=== PATIENT | female | born 1960 | race Hispanic/Latino ===

== ENCOUNTER 2017-06-10 12:43 | Observation (INO) | payer BC ==
[2017-06-10 13:01] VITALS: BMI 23.3
--- NOTE | 2017-06-10 13:30 | ED PDOC ---
Arrival/HPI - General Time Seen by Provider: 06/10/17 13:08 Historian: Patient - History of Present Illness Narrative History of Present Illness (Text): 06/10/17 19:38 57yo female with history antiphospholipid syndrome, COPD with cardiac stent who present with complaint of chest tightness and [place] x 2days. She notes that symptoms started after she came back from a trip to [facility] and [place]. Notes edema of her b/l foot. States she had similar symptoms when she was stent few years ago. +Mild cough. Denies orthopnea, fever, chills, diaphoresis, nausea, vomiting, ripping/tearing upper back pain, dizziness, any other complaint. Notes that she took her usually 325mg of [employer] [employer]. Past Medical History - Provider Review Nursing Documentation Reviewed: Yes - Hematological/Oncological Hx Blood Transfusions: No Hx Blood Transfusion Reaction: No - Anesthesia Hx Anesthesia Reactions: No Hx Malignant Hyperthermia: No Family/Social History - Physician Review Nursing Documentation Reviewed: Yes Family/Social History: Unknown Family HX Allergies/Home Meds Allergies/Adverse Reactions: Allergies raw eggs Allergy (Uncoded 06/10/17 15:40) ITCHING Home Medications: Home Meds Medication Instructions Recorded Confirmed Atorvastatin Calcium [Lipitor] 40 mg PO DAILY 02/12/13 06/10/17 Clopidogrel [Plavix] 75 mg PO DAILY 02/12/13 06/10/17 Fluticasone/Salmeterol [Advair 1 inh INH DAILY 02/12/13 06/10/17 Diskus 100/50] Propranolol [Inderal LA] 120 mg PO DAILY 02/12/13 06/10/17 Alprazolam [Xanax] 0.5 mg PO HS PRN 06/10/17 06/10/17 Aspirin [Ecotrin] 325 mg PO DAILY 06/10/17 06/10/17 Review of Systems - Physician Review All systems were reviewed & negative as marked: Yes - Review of Systems Constitutional: Normal Eyes: Normal ENT: Normal Respiratory: SOB. absent: Cough, Sputum, Wheezing Cardiovascular: Chest Pain, Edema. absent: Palpitations, Calf Pain Gastrointestinal: Normal Genitourinary Female: Normal Musculoskeletal: Normal Skin: Normal Neurological: Normal Endocrine: Normal Hemo/Lymphatic: Normal Psychiatric: Normal Physical Exam Vital Signs Reviewed: Yes Vital Signs Temp Pulse Resp BP Pulse Ox 06/10/17 13:02 19 06/10/17 12:44 98.6 F 85 19 121/95 H 96 Temperature: Afebrile Blood Pressure: Normal Pulse: Regular Respiratory Rate: Normal Appearance: Positive for: Well-Appearing, Non-Toxic, Comfortable Pain Distress: None Mental Status: Positive for: Alert and Oriented X 3 - Systems Exam Head: Present: Atraumatic, Normocephalic Pupils: Present: PERRL Extroacular Muscles: Present: EOMI Conjunctiva: Present: Normal Mouth: Present: Moist Mucous Membranes Neck: Present: Normal Range of Motion Respiratory/Chest: Present: Clear to Auscultation, Good Air Exchange, Decreased Breath Sounds. No: Respiratory Distress, Accessory Muscle Use, Wheezes, Rales, Retracting, Rhonchi Cardiovascular: Present: Regular Rate and Rhythm, Normal S1, S2. No: Murmurs Abdomen: Present: Normal Bowel Sounds. No: Tenderness, Distention, Peritoneal Signs Back: Present: Normal Inspection Upper Extremity: Present: Normal Inspection. No: Cyanosis, Edema Lower Extremity: Present: Normal Inspection, Edema (2+ pitting edema of b/l foot ), NORMAL PULSES, Normal ROM. No: CALF TENDERNESS Neurological: Present: GCS=15, CN II-XII Intact, Speech Normal Skin: Present: Warm, Dry, Normal Color. No: Rashes Psychiatric: Present: Alert, Oriented x 3, Normal Insight, Normal Concentration Medical Decision Making ED Course and Treatment: 06/10/17 19:38 Pt in ED for stated history. Her First CE was negative and D dimer was negative. EKG NSR @ 81bpm Pt have significant cardiac history and was admitted for further evaluation Case was SHAJI Yoo and he saw pt in the ED. Case was SHAJI woods and pt was admitted - Lab Interpretations Lab Results: 06/10/17 13:20 06/10/17 13:20 Lab Results 06/10/17 13:20: Sodium 143, Chloride 107, Potassium 3.6, Carbon Dioxide 28, Anion Gap 12, BUN 22 H, Creatinine 0.8, Est GFR ( Amer) > 60, Est GFR ( Non-Af Amer) > 60, Random Glucose 126 H, Calcium 9.7, Total Bilirubin 0.3, AST 26, ALT 33, Alkaline Phosphatase 76, Lactate Dehydrogenase 488, Total Creatine Kinase 57, Troponin I < 0.01, NT-Pro-B Natriuret Pep 151, Total Protein 7.1, Albumin 3.8, Globulin 3.3, Albumin/Globulin Ratio 1.2 06/10/17 13:20: pO2 56 H, VBG pH 7.43, VBG pCO2 42.0, VBG HCO3 27.9, VBG Total CO2 29.2 H, VBG O2 Sat (Calc) 95.2 H, VBG Base Excess 3.2 H, VBG Potassium 3.8, Sodium 140.0, Chloride 109.0 H, Glucose 126 H, Lactate 1.4, FiO2 21.0, Venous Blood Potassium 3.8 06/10/17 13:20: Urine Color Yellow, Urine Appearance Clear, Urine pH 6.0, Ur Specific [place] 1.025, Urine Protein Negative, Urine Glucose (UA) Negative, Urine Ketones Negative, Urine Blood Negative, Urine Nitrate Negative, Urine Bilirubin Negative, Urine Urobilinogen 0.2, Ur Leukocyte Esterase Negative 06/10/17 13:20: PT 11.5, INR 1.00, APTT 28.4, D-Dimer, Quantitative 236 06/10/17 13:20: WBC 7.9, RBC 4.91, Hgb 13.3, Hct 42.2, MCV 85.9, MCH 27.1, MCHC 31.5, RDW 14.6 H, Plt Count 194, MPV 10.8, Gran % 53.4, Lymph % (Auto) 33.8, [place] % (Auto) 7.2 H, Eos % (Auto) 5.3 H, Baso % (Auto) 0.3, Gran # 4.20, Lymph # (Auto) 2.7, [place] # (Auto) 0.6, Eos # (Auto) 0.4, Baso # (Auto) 0.02 - RAD Interpretation Radiology Orders: 06/10/17 13:09 CHEST PORTABLE [RAD] Stat 06/10/17 13:54 DUPLEX LOWER EXTRM VEIN BILAT [US] Stat - Medication Orders Current Medication Orders: Alprazolam (Xanax) 0.5 mg PO HS PRN; Protocol PRN Reason: Anxiety Aspirin (Ecotrin) 325 mg PO DAILY [place] Atorvastatin Calcium (Lipitor) 40 mg PO DAILY [place] Last Admin: 06/10/17 18:18 Dose: 40 mg Clopidogrel Bisulfate (Plavix) 75 mg PO DAILY [facility] Levalbuterol HCl (Xopenex) 0.63 mg IH [id number] PRN PRN Reason: Shortness of Breath Propranolol HCl (Inderal La) 12 mg PO DAILY [place]SE[place] Discontinued Medications Albuterol/Ipratropium (Duoneb 3 Mg/0.5 Mg (3 Ml) Ud) 3 ml IH STAT STA Stop: 06/10/17 14:37 Last Admin: 06/10/17 14:52 Dose: 3 ml Albuterol/Ipratropium (Duoneb 3 Mg/0.5 Mg (3 Ml) Ud) 3 ml IH STAT STA Stop: 06/10/17 15:03 Last Admin: 06/10/17 15:30 Dose: 3 ml Albuterol/Ipratropium (Duoneb 3 Mg/0.5 Mg (3 Ml) Ud) 3 ml IH STAT STA Stop: 06/10/17 15:08 Last Admin: 06/10/17 15:15 Dose: 3 ml Atorvastatin Calcium (Lipitor) 40 mg PO DAILY [facility] Enoxaparin Sodium (Lovenox) 60 mg SC STAT STA PRN Reason: Protocol Stop: 06/10/17 16:33 Last Admin: 06/10/17 17:29 Dose: 60 mg Subcutaneous Administrations Document 06/10/17 17:29 GM (Rec: 06/10/17 17:30 GM [id number]) Injection Site MAR Injection Site Left Abdomen Charges for Administration # of Subcutaneous Administrations 1 Furosemide (Lasix) 40 mg IV ONCE ONE Stop: 06/10/17 16:33 Last Admin: 06/10/17 17:28 Dose: 40 mg eMAR Start Stop Document 06/10/17 17:28 GM (Rec: 06/10/17 17:29 GM [id number]) Intravenous Solution Start Date 06/10/17 Start Time 17:29 MAR Blood Pressure Document 06/10/17 17:28 GM (Rec: 06/10/17 17:29 GM [id number]) Blood Pressure Blood Pressure (100/60-150/90) 118/71 Methylprednisolone (Solu-Medrol) 125 mg IVP STAT STA Stop: 06/10/17 15:02 Last Admin: 06/10/17 16:14 Dose: 125 mg IVP Administration Document 06/10/17 16:14 SF (Rec: 06/10/17 16:14 [id number]) Charges for Administration # of IVP Administrations 1 Potassium Chloride (K-Dur 20 Meq Er Tab) 40 meq PO STAT STA Stop: 06/10/17 16:33 Last Admin: 06/10/17 17:28 Dose: 40 meq Disposition/Present on Arrival - Present on Arrival Any Indicators Present on Arrival: No History of DVT/PE: No History of Uncontrolled Diabetes: No Urinary Catheter: No History of Decub. Ulcer: No - Disposition Have Diagnosis and Disposition been Completed?: Yes Diagnosis: Chest pain, COPD (chronic obstructive pulmonary disease), Edema Disposition: HOSPITALIZED Disposition Time: 15:05 Patient Problems: Current Active Problems Problem Status Onset COPD (chronic obstructive pulmonary disease) Acute Chest pain Acute Condition: FAIR
[2017-06-10 13:42] LABS: VENOUS BLOOD GAS BASE EXCESS 3.2 mmol/L (0.0-2.0); VENOUS BLOOD GAS PO2 56 mm/Hg (30-55); VENOUS BLOOD PH 7.43 (7.32-7.43)
[2017-06-10 13:43] LABS: BASO # 0.02 K/mm3 (0.0-2.0); BASO % 0.3 % (0.0-3.0); EOS # 0.4 (0.0-0.7); EOS % 5.3 % (1.5-5.0); GRAN # 4.2 (1.4-6.5); GRAN % 53.4 % (50.0-68.0); HEMOGLOBIN 13.3 g/dL (12.0-16.0); LYMPH # 2.7 (1.2-3.4); LYMPH % 33.8 % (22.0-35.0); MEAN CELL VOLUME 85.9 fl (80.0-105.0); MEAN CORPUSCULAR HEMOGLOBIN 27.1 pg (25.0-35.0); MEAN CORPUSCULAR HGB CONC 31.5 g/dl (31.0-37.0); MEAN PLATELET VOLUME 10.8 fl (7.0-11.0); MONO # 0.6 (0.1-0.6); MONO % 7.2 % (1.0-6.0); RBC 4.91 10^6/uL (3.5-6.1); RED CELL DISTRIBUTION WIDTH 14.6 % (11.5-14.5); WHITE BLOOD COUNT 7.9 10^3/ul (4.5-11.0)
--- NOTE | 2017-06-10 13:46 | RAD ---
HISTORY: Shortness of breath COMPARISON: 02/03/2011. FINDINGS: LUNGS: The lungs are hyperinflated and there is peribronchial thickening with chronic changes in both lungs. There is no focal consolidation PLEURA: No significant pleural effusion identified, no pneumothorax apparent. CARDIOVASCULAR: Normal. OSSEOUS STRUCTURES: No significant abnormalities. VISUALIZED UPPER ABDOMEN: Normal. OTHER FINDINGS: None. IMPRESSION: No active pulmonary disease. COPD.
[2017-06-10 13:48] LABS: PARTIAL THROMBOPLASTIN TIME 28.4 Seconds (25.1-36.5); PROTHROMBIN TIME 11.5 SECONDS (9.4-12.5)
[2017-06-10 13:49] LABS: ALB/GLOB RATIO 1.2 (1.1-1.8); ALBUMIN 3.8 g/dL (3.0-4.8); ALT/SGPT 33 U/L (7-56); AST/SGOT 26 U/L (14-36); BLOOD UREA NITROGEN 22 mg/dL (7-21); CALCIUM 9.7 mg/dL (8.4-10.5); GFR AFRICAN-AMERICAN > 60; GFR NON-AFRICAN AMERICAN > 60
[2017-06-10 13:53] LABS: URINE BILIRUBIN NEGATIVE (NEGATIVE); URINE BLOOD NEGATIVE (NEGATIVE); URINE GLUCOSE (UA) NEGATIVE (NEGATIVE); URINE LEUKOCYTE ESTERASE NEGATIVE Leu/uL (NEGATIVE); URINE NITRATE NEGATIVE (NEGATIVE); URINE PROTEIN NEGATIVE mg/dL (<30 mg/dL); URINE UROBILINOGEN 0.2 E.U./dL (<1 E.U./dL)
[2017-06-10 14:01] LABS: B-TYPE NATRIURETIC PEPTIDE 151 pg/mL (0-450); TROPONIN I < 0.01 ng/mL
[2017-06-10 14:05] LABS: URINE APPEARANCE CLEAR (CLEAR); URINE COLOR YELLOW (YELLOW)
[2017-06-10] MEDS ORDERED: Albuterol-Ipratrop 3 mg / 0.5 (3 ml) UD IH STA ×3 (14:36→15:07)
--- NOTE | 2017-06-10 16:04 | US ---
HISTORY: Leg pain and swelling. Evaluate for DVT PHYSICIAN(S): Dilshad Vargas MD. TECHNIQUE: Duplex sonography and color-flow Doppler with graded compression were used to evaluate the deep venous systems of both lower extremities. FINDINGS: The visualized deep venous systems of both lower extremities are sonographically normal and compressible. Normal wave forms and augmentation are seen. There is no sonographic evidence for deep venous thrombosis in the visualized segments of both lower extremities. IMPRESSION: No sonographic evidence for deep venous thrombosis in the visualized segments of both lower extremities.
[2017-06-10] MEDS ORDERED: Enoxaparin 60 mg Syringe SC STA (16:32)
[2017-06-10] MEDS ORDERED: Potassium Chloride 20 mEq ER Tab PO STA (16:32)
[2017-06-10] MEDS ORDERED: Levalbuterol 0.63 MG/3 ML Inhal Soln UD IH PRN (16:34)
[2017-06-10 17:03] LABS: HDL CHOLESTEROL 56 mg/dL (29-60)
[2017-06-10 17:14] LABS: LDL CHOLESTEROL 84 mg/dL (0-129)
[2017-06-10 17:18] LABS: TROPONIN I < 0.01 ng/mL
--- NOTE | 2017-06-11 04:21 | CON ---
DATE: 06/10/2017 REASON FOR CONSULTATION: Chest pain, tightness, swelling of the leg, mild shortness of breath, history of coronary artery disease. BRIEF CLINICAL HISTORY: This is a 57-year-old female with history of coronary artery disease in 2007, status post PTCA, history of PAD, status post stent in the leg somewhere in 2008 or 2009, off Plavix. Last stress test in 2014. [place] [facility], the patient later on developed some swelling and while she was coming, she was having some chest pain, one episode, last Tuesday. There was mild shortness of breath, increase in more leg fullness and decided to come to the emergency room. Initially called Dr. Sims's office and was suggested to come to the ER. The patient currently denies any chest pain, denies any shortness of breath, denies any palpitation, getting Proventil nebulizer treatment now. is at the bedside. PAST HISTORY: Significant for coronary artery disease, hypertension and COPD, history of tobacco abuse in the past, history of coronary artery disease in 2007, history of peripheral artery disease, status post stent. Last stress test, cardiac workup in 02/26/2015 that was normal myocardial perfusion study, ejection fraction 69%, it was a Lexiscan. CURRENT MEDICATIONS: The patient is taking at home propranolol 120 mg daily, Advair 1 puff inhaler, clopidogrel 75 mg daily, atorvastatin 40 mg daily, aspirin 325 mg daily and Xanax 0.5 mg p.o. at bedtime p.r.n. ALLERGIES: ALLERGY TO RAW EGGS. SOCIAL HISTORY: Denies any history of alcohol abuse. Socially drinks. History of active tobacco abuse. REVIEW OF SYSTEMS: As per HPI. PHYSICAL EXAMINATION: VITAL SIGNS: Temperature afebrile, heart rate 85, blood pressure 121/95. HEENT: PERRLA, intact. NECK: Supple. No carotid bruits or thyromegaly. CHEST: Clear to auscultation. HEART: S1, S2 regular. ABDOMEN: Soft. EXTREMITIES: Clubbing and cyanosis negative. Trace pedal edema. Claims that she has more leg edema 2 days ago, but now improved. Tanning of the leg and feet noted because of the beach. EKG shows normal sinus, left abnormal. No acute ST-T changes noted. LABORATORY DATA: Blood workup as follows: WBC is 7.9, hemoglobin 13.3, hematocrit 42.0, platelet count 194. Chemistry shows sodium 140, potassium 3.6, chloride 107, carbon dioxide 29, anion gap of 12. BUN 0.8. IMPRESSION: Chest pain, so far no evidence of myocardial infarction. No acute ST-T changes noted. History of coronary artery disease, borderline diabetes, hypertension, hyperlipidemia, peripheral arterial disease, active tobacco abuse. Last stress test in 02/2015. RECOMMENDATIONS: We will add second set of troponin now and repeat one in the morning. If troponin remains negative, we will discharge her home and stress test as outpatient. Discussed with the patient. Discussed with the patient's . We will get lipid profile, hemoglobin A1c. Thank you Dr. Jain, for providing us the opportunity in taking care of the patient, Alea Brown. Cristiane Yoo MD
[2017-06-11 05:30] VITALS: BP 134/70; RESP 20; TEMP 98.1; O2SAT 94
[2017-06-11 09:22] LABS: BASO # 0.01 K/mm3 (0.0-2.0); BASO % 0.1 % (0.0-3.0); GRAN # 14.46 (1.4-6.5); GRAN % 87.6 % (50.0-68.0); LYMPH # 1.6 (1.2-3.4); LYMPH % 9.6 % (22.0-35.0); MEAN CELL VOLUME 85.9 fl (80.0-105.0); MEAN CORPUSCULAR HEMOGLOBIN 27.8 pg (25.0-35.0); MEAN CORPUSCULAR HGB CONC 32.3 g/dl (31.0-37.0); MEAN PLATELET VOLUME 10.8 fl (7.0-11.0); MONO # 0.4 (0.1-0.6); MONO % 2.7 % (1.0-6.0); RBC 5.04 10^6/uL (3.5-6.1); RED CELL DISTRIBUTION WIDTH 14.6 % (11.5-14.5); WHITE BLOOD COUNT 16.5 10^3/ul (4.5-11.0)
[2017-06-11 09:33] LABS: ALB/GLOB RATIO 1.2 (1.1-1.8); ALBUMIN 4.2 g/dL (3.0-4.8); ALT/SGPT 34 U/L (7-56); AST/SGOT 29 U/L (14-36); BLOOD UREA NITROGEN 27 mg/dL (7-21); GFR AFRICAN-AMERICAN > 60; GFR NON-AFRICAN AMERICAN > 60; MAGNESIUM 2.1 mg/dL (1.7-2.2)
[2017-06-11 09:43] LABS: TROPONIN I < 0.01 ng/mL
[2017-06-11] MEDS ORDERED: Propranolol 60 mg ER Cap PO SCH ×2 (10:00)
[2017-06-11] MEDS ORDERED: PROPRANOLOL 120 MG PO SCH (10:00)
[2017-06-11] MEDS ORDERED: Aspirin 325 mg EC Tablets PO SCH (10:00)
[2017-06-11 10:05] VITALS: PULSE 75
--- NOTE | 2017-06-11 21:59 | PN ---
DATE: 06/11/2017 LOCATION: Patient is in room 375, bed 1. REASON FOR CONSULTATION: Chest pain, swelling of legs, shortness of breath, history of coronary artery disease. Patient has stent put in in the past, history of PAD. SUBJECTIVE: Patient is sitting in the bed without any chest pain, shortness of breath, or palpitation. Her leg swelling is also completely cleared. PHYSICAL EXAMINATION: VITAL SIGNS: Blood pressure 134/70, respiratory rate is 20, pulse is 75, temperature is 98.1. HEENT: Head is normocephalic. Eyes, pupils normal, conjunctivae normal. Nose and throat normal. NECK: JVP low. Carotids equal. THORAX: AP diameter normal. LUNGS: Clear. CARDIOVASCULAR: S1 and S2. ABDOMEN: Soft. No tenderness. No organomegaly. Bowel sounds normal. EXTREMITIES: No clubbing. No cyanosis. LABORATORY DATA: WBC 16.5, hemoglobin 14.0, hematocrit 43.3, platelet 199. Sodium 144, potassium 3.9, BUN 27, creatinine 0.7, random glucose 198, phosphorus 3.9, magnesium 2.1. AST, ALT normal. Troponin x3 negative. Total protein 7.8, albumin 4.2. TSH 0.46, NT-pro brain natriuretic peptide 151. DIAGNOSES: Chest pain, history of coronary artery disease, history of angioplasty and stent insertion, borderline diabetes, hypertension, hyperlipidemia, peripheral vascular disease, acute tobacco abuse, history of antiphospholipid antibody syndrome. Last stress test in 02/2015. Edema of the legs, probably due to venous stasis, which has cleared. PLAN: Patient's troponins are negative. Patient does not have any chest pain. Patient wants to go home today and patient states that she will do a stress test as outpatient. So, patient was told to continue aspirin and Plavix with other medications and she will also see Dr. Burdick for antiphospholipid antibody syndrome followup. Patient will do stress test as an outpatient. We will follow with you. Cristiane Simons MD
--- NOTE | 2017-06-12 02:09 | HP ---
HISTORY OF PRESENT ILLNESS: The patient is 57 years old, patient of Dr. Sims, who has past medical history of coronary artery disease and the patient states she usually travels and she has been traveling back and forth, but yesterday she developed left foot bruise. She had chest pain with mild shortness of breath, so she came to emergency room for further evaluation because of her previous history of coronary artery disease. The patient states she felt as her clavicles are getting tight on her. She also had left leg swelling. Denies any fever or chills. No history of nausea or vomiting. No diarrhea. PAST MEDICAL HISTORY: Significant for; 1. Coronary artery disease, status post angioplasty in 2007. She had right coronary artery stent placed, has been on aspirin and Plavix for 2-3 years. The patient states she had stress test done in 2014 and it was found to be unremarkable. 2. History of hypertension. 3. Coronary artery disease. 4. History of COPD. 5. History of smoking. 6. Peripheral vascular disease. ALLERGIES: SHE IS ALLERGIC TO RAW EGGS. MEDICATIONS AT HOME: She is on propranolol 120 mg daily, Advair 1 puff twice a day. She used to take Plavix, but is off for sometime, atorvastatin 40 mg daily, aspirin 325 daily and Xanax as needed. SOCIAL HISTORY: She is , lives with her . Denies alcohol use, only socially drinks and has history of active smoking. REVIEW OF SYSTEMS: Significant for left leg swelling. FAMILY HISTORY: Positive for blood clot disorder. Two of her half sisters have antiphospholipid antibody deficiency. PHYSICAL EXAMINATION: GENERAL: On examination today, she is awake, alert, oriented. She states her chest pain is gone, leg swelling is better. She wants to go home. VITAL SIGNS: She is afebrile, pulse 95, respirations 20, blood pressure 134/70. LUNGS: Bilateral good airflow. No rhonchi or crackle. HEART: S1, S2 audible. ABDOMEN: Soft, nontender. No rebound. No guarding. NEUROLOGICALLY: The patient is awake, alert, oriented, communicative. LABORATORY EXAMINATION: WBC is 7.9 yesterday and today is 16.5, hemoglobin 14, hematocrit 43, platelet of 199. PT 11.5, INR 1.0. Chemistry: Sodium 144, potassium 3.9, chloride 106, CO2 of 27, BUN 27, creatinine 0.7, blood sugar of 198. LFTs are within normal limit. Total cholesterol 161, TSH is 0.46. Urinalysis is unremarkable. Echocardiogram is pending. Leg Doppler is negative for DVT. X-ray chest is also unremarkable. ASSESSMENT: 1. Noncardiac chest pain. 2. History of coronary artery disease, status post right coronary artery angioplasty. 3. History of coagulopathy in the family, even the patient stated that she has antiphospholipid antibody disorder. PLAN: The patient is clinically stable. Her followup white count is high. She desperately wants to go home and she states she will follow up with her PMD to repeat her CBC. She is also advised to follow up with oncologist, Dr. Burdick to have her coagulation workup done again to rule out any clotting disorder since the workup was done 6-7 years ago. So the patient is being discharged home on her routine medication that include propranolol, Plavix 75 daily until she gets hematology evaluation done. She will continue Advair, atorvastatin and Xanax as prior to admission. Rainer Moreno MD
--- NOTE | 2017-06-13 15:59 | CARD ---
APPROVED REPORT EXAM: Two-dimensional and M-mode echocardiogram with Doppler and color Doppler. INDICATION 2D DIMENSIONS IVSd1.0 (0.7-1.1cm)LVDd4.0 (3.9-5.9cm) LVOT Diameter1.9 (1.8-2.4cm)PWd0.9 (0.7-1.1cm) LVDs2.5 (2.5-4.0cm)FS (%) 37.4 % LVEF (%)68.1 (>50%) M-Mode DIMENSIONS Left Atrium (MM)2.30 (2.5-4.0cm)Aortic Root2.60 (2.2-3.7cm) Aortic Cusp Exc.1.40 (1.5-2.0cm) Aortic Valve AoV Peak Qqjftptc790.0cm/Alexander Peak GR.6mmHg Mitral Valve MV E Fpcvypug81.8cm/sMV A Hwbesxep47.9cm/sE/A ratio1.0 TDI Lateral E' Peak V9.07cm/sMedial E' Peak V6.24cm/sE/Lateral E'9.8 E/Medial E'14.2 Tricuspid Valve TR Peak [id number]/sRAP [id number] Peak Gr.22mmHg [id number] LEFT VENTRICLE The left ventricle is normal size. There is normal left ventricular wall thickness. The left ventricular function is normal.EF-60-65% There is normal LV segmental wall motion. The left ventricular diastolic function is normal. No left ventricle thrombus noted on this study. There is no ventricular septal defect visualized. There is no left ventricular aneurysm. There is no mass noted in the left ventricle. RIGHT VENTRICLE The right ventricle is normal size. There is normal right ventricular wall thickness. The right ventricular systolic function is normal. ATRIA The left atrium size is normal. The right atrium size is normal. The interatrial septum is intact with no evidence for an atrial septal defect. AORTIC VALVE The aortic valve is calcified but opens well. The aortic valve is mildly to moderately sclerotic. No aortic regurgitation is present. Aortic sclerosis Vs mild There is no aortic valvular vegetation. MITRAL VALVE The mitral valve is normal in structure. Mitral regurgitation is trace. There is no mitral valve stenosis. There is no evidence of mitral valve prolapse. TRICUSPID VALVE The tricuspid valve leaflets are thickened , but open well. There is trace tricuspid regurgitation.[id number]-32 mmof hg. There is no tricuspid valve stenosis. There is no tricuspid valve prolapse or vegetation. PULMONIC VALVE The pulmonary valve is normal in structure. There is no pulmonic valvular regurgitation. There is no pulmonic valvular stenosis. GREAT VESSELS The aortic root is normal in size. The ascending aorta is normal in size. The pulmonary artery is normal. The IVC is normal in size and collapses >50% with inspiration. PERICARDIAL EFFUSION There is no pleural effusion. There is no pericardial effusion. <Conclusion> Normal chamber Size. EF-60-65% Trace MR/TR [id number] mmof hg.
--- NOTE | 2017-06-15 08:13 | CARD ---
APPROVED REPORT EKG Measurement Heart [id number] ME [id number] <Conclusion> Normal sinus rhythm Possible Left atrial enlargement Borderline ECG
== END 2017-06-11 13:29 | disposition home or self-care (01) ==
LOC: ED 12:43 → ERH 15:05 → 3RSO 16:49
PROVIDERS: ADMIT Internal Medicine Nephrology; ATTEND Internal Medicine Nephrology
DX: R07.89 Other chest pain (principal); J44.9 Chronic obstructive pulmonary disease, unspecified; D68.61 Antiphospholipid syndrome; I10 Essential (primary) hypertension; R73.03 Prediabetes; I73.9 Peripheral vascular disease, unspecified; E78.5 Hyperlipidemia, unspecified; I25.10 Atherosclerotic heart disease of native coronary artery without angina pectoris; Z87.891 Personal history of nicotine dependence; Z79.82 Long term (current) use of aspirin; Z95.5 Presence of coronary angioplasty implant and graft
CPT/HCPCS: 36415; 71045; 80053; 80061; 81003; 82550; 82803; 83036; 83615; 83735; 83880; 84100; 84443; 84484; 85025; 85378; 85610; 85730; 87040; 93306; 93970; 96374; 99285; G0378; J1650; J1940; J2930